=== PATIENT | male | born 1965 | race Caucasian/White ===

== ENCOUNTER 2019-03-11 08:50 | Emergency (ER) | payer BC ==
[~2019-03-11] VITALS: Ht 185.4 cm; Wt 133.8 kg
[2019-03-11 08:50] VITALS: BP_SYST 140
--- NOTE | 2019-03-11 08:50 | NUR ---
Patient triaged and placed in waiting room. VSS and patient appears in no acute distress at this time. Accompanied by , awaiting available bed, and MD notified of need for MSE.
--- NOTE | 2019-03-11 09:28 | NUR ---
BROUGHT BACK TO [facility] AND DR ESPINOSA EVALUATING
[2019-03-11] MEDS ORDERED: KETOROLAC TROMETHAMINE 60 MG/2 ML VIAL IM ONE (09:30)
[2019-03-11] MEDS ORDERED: MORPHINE 4 MG/ML INJ. SYRINGE IM ONE (09:30)
--- NOTE | 2019-03-11 09:30 | NUR ---
PT STATES LEFT GREAT TOE IS SWOLLEN AND RED FOR SINCE YESTERDAY.
[2019-03-11 10:04] VITALS: BP_SYST 147
--- NOTE | 2019-03-11 10:04 | NUR ---
Patient given written and verbal discharge instructions and verbalizes understanding. ER MD discussed with patient the results and treatment provided. Patient in stable condition. ID arm band removed. Rx of COLCHICINE, ALLOPURINOL, DOXYCYCLINE, NAPROSYN given. Patient educated on pain management and to follow up with PMD. Pain Scale 0/10. Opportunity for questions provided and answered. Medication side effect fact sheet provided.
== END 2019-03-11 10:04 | disposition home or self-care (01) ==
LOC: SED 08:50
DX: M10.9 Gout, unspecified (principal); J45.909 Unspecified asthma, uncomplicated
CPT/HCPCS: 96372; 99283; J1885; J2270